=== PATIENT | female | born 1965 | race Caucasian/White ===

== ENCOUNTER 2018-11-01 09:39 | Day surgery (SDC) | payer OTHER ==
[2018-11-01] MEDS ORDERED: CEFAZOLIN 2 GM/50 ML (PMX) 50 ML IVPB (12:30)
[2018-11-01] MEDS ORDERED: SOD CHLORIDE 0.9% 1,000 ML IV (12:30)
[2018-11-01] MEDS ORDERED: BUPIVACAINE 0.25%/EPI (SDV) 30 ML INJ (13:18)
[2018-11-01] MEDS ORDERED: DIPHENHYDRAMINE 50 MG INJ IV (13:30)
[2018-11-01] MEDS ORDERED: FENTAnyl 50 MCG/ML VIAL IV ×2 (13:30)
[2018-11-01] MEDS ORDERED: MEPERIDINE 25 MG INJ IV (13:30)
[2018-11-01] MEDS ORDERED: METOCLOPRAMIDE 10 MG INJ IV (13:30)
[2018-11-01] MEDS ORDERED: ALBUTEROL 0.083% (NEB) 2.5 MG/3 ML AMP HHN (13:30)
[2018-11-01] MEDS ORDERED: HYDROmorphONE 1 MG/5 ML IV SYRINGE IV ×3 (13:30)
[2018-11-01] MEDS ORDERED: ONDANSETRON 4 MG INJ IV ×2 (13:30→14:30)
[2018-11-01] MEDS ORDERED: FENTAnyl 50 MCG/ML VIAL (13:42)
[2018-11-01] MEDS ORDERED: MIDAZOLAM 1 MG/ML 2 ML INJ (13:42)
[2018-11-01] MEDS: LIDOCAINE 1%/EPI 30 ML INJ (13:55)
[2018-11-01] MEDS: BUPIVACAINE 0.25% (MPF) 30 ML INJ (13:55)
[2018-11-01] MEDS ORDERED: IBUPROFEN 600 MG TAB PO (14:30)
== END 2018-11-01 15:35 | disposition home or self-care (01) ==
LOC: SDS 09:39
DX: N60.01 Solitary cyst of right breast (principal)
CPT/HCPCS: 19120; 88304